=== PATIENT | male | born 2000 | race Caucasian/White ===

== ENCOUNTER 2021-11-10 19:12 | Emergency (ER) | payer OTHER, SELFPAY ==
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
[2021-11-10 19:40] VITALS: BP 107/86; PULSE 102; RESP 18; TEMP 36.8; O2SAT 98; BMI 20.9
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
[2021-11-10 20:28] VITALS: BP 107/86; PULSE 102; RESP 18; TEMP 36.8; O2SAT 98
== END 2021-11-10 20:38 | disposition home or self-care (01) ==
PROVIDERS: Emergency Provider Nurse Practitioner Family
DX: M25.511 Pain in right shoulder (principal); M79.621 Pain in right upper arm; V87.8XXA Person injured in other specified noncollision transport accidents involving motor vehicle (traffic), initial encounter
CPT/HCPCS: 73030; 73060; 73080; 99202; G0463

== ENCOUNTER 2023-05-30 18:15 | Emergency (ER) | payer MEDICARE, SELFPAY ==
[2023-05-30 18:45] VITALS: BP 107/71; PULSE 82; RESP 17; TEMP 37.1; O2SAT 98; BMI 21.6
[2023-05-30 19:57] VITALS: BP 101/75; PULSE 83; TEMP 36.9; O2SAT 99
--- NOTE | 2023-05-30 20:29 | HMH.EDGENADL ---
Discharge Plan Disposition Patient Disposition: Home, Self-Care Condition: Good Prescriptions Prescriptions: New doxycycline monohydrate 100 mg tablet 100 mg PO BID 10 Days Qty: 20 0RF Referrals Follow up/Referrals: Provider,Referral, [Primary Care Provider] - See instructions Clinical Impressions Clinical Impression: Cellulitis of finger Qualifiers: Laterality: right Qualified Code(s): L03.011 - Cellulitis of right finger Instructions Patient Instructions: DI for Skin Abscess Discharge ED Provider: Sundar Bustamante Adult HPI General Chief complaint: Skin/Abscess/Foreign Body Stated complaint: wound on right pointer finger Time Seen by Provider: 05/30/23 20:26 Mode of Arrival: Family Vehicle Limitations: No Limitations Description of Symptoms (Recalled from ER Triage Doc. by RN): Pt c/o pain and possible infections finger onR hand. States that he cut it with a plastic piece. States this happened about 1 wk ago. Denies taking any OTC medications [employer] [employer]. States he used History of Present Illness HPI narrative: Patient presents for evaluation of wound on dorsal aspect of finger of dominant right hand, patient sustained injury to finger while working with his hands approximately 1 week ago, subsequently developed erythema over preceding abrasion, with mild nonradiating pain and no distal numbness or tingling. Previous therapies include hydrogen peroxide and Band-Aid with mild improvement of symptoms. No chronic medical issues. No recreational drug use. No pain elsewhere. Patient is up-to-date on tetanus. No fevers or chills. No injury elsewhere. Injury was noncontaminated. Related Data Previous Rx's Medication Instructions Recorded doxycycline monohydrate 100 mg 100 mg PO BID 10 days #20 tabs 05/30/23 tablet Allergies Allergy/AdvReac Type Severity Reaction Status Date / Time No Known Allergies Allergy Verified 11/10/21 19:56 [facility] Disclaimer: The information contained in this section may have been updated after the patient was seen, as this information can be updated by other users. Social History Smoking Status: Current every day smoker alcohol intake: current current occupational status: employed Travel in the last 8 weeks: None ROS Obtained: Yes Systems reviewed as appropriate & no additional complaints except as documented Physical Exam General General appearance: alert and in no apparent distress Head Head exam: atraumatic and normocephalic Eye Eye exam: Present normal appearance Neck Neck exam: Present normal inspection Chest Chest inspection: Present normal inspection and symmetric chest wall rise Respiratory Respiratory exam: Present normal lung sounds bilaterally; Absent respiratory distress Cardiovascular Cardiovascular exam: Present regular rate and normal rhythm Abdominal Exam Abdominal exam: Present soft Extremities Exam Extremities exam: Present other (Abrasion with overlying erythema and mild tenderness to palpation on dorsal aspect of finger of right hand, no sausage digit, no pain on passive range of motion, finger is not held in flexion. No bony tenderness to palpation. Capillary refill within normal limits. No fluctuance or induration) Neurological Exam Neurological exam: Present alert and oriented X3 Psychiatric Psychiatric exam: Present normal affect and normal mood Skin Skin exam: Present warm and dry Medical Decision Making Medical Records Medical records reviewed: Yes I reviewed the patient's medical records. Tommy Inquiry Pt receiving controlled substance: No Vital Signs: 05/30/23 18:45 05/30/23 19:57 05/30/23 21:02 Temperature 98.8 F 98.4 F 98.3 F Temperature Source Oral Pulse Rate 83 79 Pulse Rate [Right] 82 Respiratory Rate 17 18 Blood Pressure 101/75 L 109/79 L Blood Pressure [Left Arm] 107/71 L Blood Pressure Mean [Left Arm] 83 Blood Pressure Source [Left Arm] Automatic Cuff 02 Sat by Pulse
[2023-05-30 21:02] VITALS: BP 109/79; PULSE 79; RESP 18; TEMP 36.8
== END 2023-05-30 21:03 | disposition home or self-care (01) ==
PROVIDERS: Emergency Provider Emergency Medicine
DX: L03.011 Cellulitis of right finger (principal); S61.20 Unspecified open wound of other finger without damage to nail; X58.XXXS Exposure to other specified factors, sequela; Y99.0 Civilian activity done for income or pay
CPT/HCPCS: 99283